=== PATIENT | female | born 1990 | race American Indian/Alaskan Native ===

== ENCOUNTER 2017-03-10 12:10 | Emergency (ER) | payer MEDICAID ==
[2017-03-10 12:23] VITALS: BMI 35.6
[2017-03-10 13:04] LABS: URINE BILIRUBIN NEGATIVE (NEGATIVE); URINE BLOOD NEGATIVE (NEGATIVE); URINE GLUCOSE (UA) NEGATIVE (NEGATIVE); URINE KETONE NEGATIVE (NEGATIVE); URINE LEUKOCYTE ESTERASE LARGE Leu/uL (NEGATIVE); URINE PROTEIN NEGATIVE mg/dL (<30 mg/dL); URINE UROBILINOGEN 0.2 E.U./dL (<1 E.U./dL)
[2017-03-10 13:25] LABS: URINE COLOR YELLOW (YELLOW)
[2017-03-10 13:26] LABS: ADD MANUAL DIFF? NO
--- NOTE | 2017-03-10 13:26 | ED PDOC ---
Arrival/HPI - General Chief Complaint: Female Genitourinary Time Seen by Provider: 03/10/17 12:31 Historian: Patient - History of Present Illness Narrative History of Present Illness (Text): 03/10/17 13:24 A 26 year old ( P:3) female presents to the emergency room with complaints of on and off vaginal spotting for the last 4 days. Patient is currently and notes that her LKMP was 12/31/16. Patient denies any weakness, headaches, dizziness, any urinary complaints, or any other complaints. PMD: Dr. Jones Time/Duration: < week (4 days) Symptom Onset: Sudden Symptom Course: Unchanged Activities at Onset: Light Context: Home Past Medical History - Provider Review Nursing Documentation Reviewed: Yes - Endocrine/Metabolic Hx Diabetes Mellitus Type 2: Yes (Gestational Diabetes) - Psychiatric Hx Substance Use: No Family/Social History - Physician Review Nursing Documentation Reviewed: Yes Family/Social History: No Known Family HX Smoking Status: Unknown If Ever Smoked Hx Alcohol Use: No Hx Substance Use: No Allergies/Home Meds Allergies/Adverse Reactions: Allergies No Known Allergies Allergy (Verified 03/10/17 12:23) Home Medications: Home Meds Medication Instructions Recorded Confirmed No122/Iron/Folic Acid 1 each PO DAILY 03/10/17 03/10/17 [ Multi Tablet] Physical Exam - Physical Exam Narrative Physical Exam (Text): 03/10/17 13:27 - Review of Systems Constitutional: Normal. absent: Fatigue, Weight Change, Fevers Eyes: Normal ENT: Normal Respiratory: Normal absent: SOB, Cough, Sputum Cardiovascular: Normal absent: Chest pain, Palpitations, Syncope Gastrointestinal: Normal absent: Abdominal pain, Diarrhea, Nausea, Vomiting Genitourinary: Vaginal spotting absent: Dysuria, Frequency, Hematuria Musculoskeletal: Normal. absent: Arthralgias, Back Pain, Neck Pain Skin: Normal Neurological: Normal absent: Focal Weakness Endocrine: Normal Hemo/Lymphatic: Normal Psychiatric: Normal - Physical exam Patient appears age appropriate, speaking full sentences without difficulty - Systems Exam Head: Present: Atraumatic, Normocephalic Pupils: Present: PERRL Extraocular Muscles: Present: EOMI Conjunctiva: Present: Normal Mouth: Present: Moist Mucous Membranes Neck: Present: Normal Range of Motion. No: MIDLINE TENDERNESS, Paraspinal Tenderness Respiratory/Chest: Present: Clear to Auscultation, Good Air Exchange. No: Respiratory Distress, Accessory Muscle Use, Tachypneic Cardiovascular: Present: Regular Rate and Rhythm, Normal S1, S2, Peripheral Pulses Present. No: Murmurs Abdomen: Present: Normal Bowel Sounds, No: Tenderness, Peritoneal Signs, Rebound, Guarding, Distention Back: Present: Normal Inspection. No: Midline Tenderness, Paraspinal Tenderness Genitourinary: Scant clear discharge in the vaginal vault. Closed cervix. 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 Upper Extremity: Present: Normal Inspection. No: Cyanosis, Edema Lower Extremity: Present: Normal Inspection. No: Edema Neurological: Present: GCS=15, Speech Normal, cranial nerves II through XII fully intact with no cerebellar abnormality, neuro-sensory fully intact. No focal neurological deficits. Skin: Present: Warm, Dry, Normal Color. No: Rashes Lymphatic: Present: OX3, NI, NC Psychiatric: Present: Alert, Oriented x 3, Normal Insight, Normal Concentration Vital Signs Reviewed: Yes Vital Signs Temp Pulse Resp BP Pulse Ox 03/10/17 15:32 98.2 F 82 18 115/51 L 98 03/10/17 12:10 98.6 F 88 16 124/78 100 Temperature: Afebrile Blood Pressure: Normal Pulse: Regular Respiratory Rate: Normal Appearance: Positive for: Well-Appearing, Non-Toxic, Comfortable Pain Distress: None Mental Status: Positive for: Alert and Oriented X 3 Medical Decision Making ED Course and Treatment: Impression: A 26 year old ( P:3) female with vaginal spotting. On exam, patient abdomen is soft nontender. On speculum exam, patient's cervix is closed , no blood in the vaginal vault. Differential Diagnosis included but are not limited to: Threatened Plan: -- Transvaginal Ultrasound -- Labs/Urinalysis -- Reassess and disposition Progress Notes: Patient states that she is taking vitamins already. Patient states that she will be able to follow up with [facility] and will follow up for STD testing on Monday with medical records. 03/10/17 15:49 Rehabilitation Psychologist : Shadia Le MD Indication: , bleeding Comparison: None available Technique: Ob transvaginal ultrasound Findings: The uterus measures approximately 13.2 x 7.0 x 7.9 cm. Anteverted. There is a single intrauterine fetus present. 5 mm yolk sac. The gestational sac measures 3.8 cm and is compatible with a gestational age of 9 weeks 0 days. The crown-rump length measures 2.8 cm and is compatible with a gestational age of 9 weeks 4 days There is heart motion which measured 161.1 BPM. The right ovary measures 2.5 x 2.5 x 3.1 cm. Blood flow is demonstrated to the right ovary. 1.3 x 0.9 x 1.0 cm right ovarian follicle/cyst. The left ovary is not visualized. Impression: Live single intrauterine with estimated gestational age 9 weeks 2 days. heart rate 161.1 bpm. Advise an anomaly screen at 16-18 weeks gestational age Pt states she understands to return to the ER right away for new or worsening symptoms or for inability to f/u with PMD or specialist as instructed. Patient states that she fully agrees with and understands discharge instructions. States that she agrees with the plan and disposition. Verbalized and repeated discharge instructions and plan. I have given the patient opportunity to ask any additional questions. . - Lab Interpretations Lab Results: 03/10/17 13:16 03/10/17 13:16 Lab Results 03/10/17 14:50: Blood Type A POSITIVE, Antibody Screen Negative, BBK History Checked No verified bt 03/10/17 13:16: PT 9.7 L, INR 0.90 L, APTT 25.4 03/10/17 13:16: WBC 8.2, RBC 4.24, Hgb 12.2, Hct 36.3, MCV 85.6, MCH 28.8, MCHC 33.6, RDW 13.8, Plt Count 220, MPV 10.1, Gran % 67.3, Lymph % (Auto) 26.6, [place] % (Auto) 4.3, Eos % (Auto) 1.6, Baso % (Auto) 0.2, Gran # 5.54, Lymph # 2.2, [place] # 0.4, Eos # 0.1, Baso # 0.02 03/10/17 13:16: Beta HCG, Quant 91904.00 H 03/10/17 13:16: Sodium 137, Potassium 3.8, Chloride 102, Carbon Dioxide 25, Anion Gap 14, BUN 10, Creatinine 0.6, Est GFR ( Amer) > 60, Est GFR (Non- Af Amer) > 60, Random Glucose 100, Calcium 9.5, Total Bilirubin 0.4, AST 21, ALT 26, Alkaline Phosphatase 58, Total Protein 7.3, Albumin 3.9, Globulin 3.4, Albumin/Globulin Ratio 1.1 03/10/17 12:45: Urine Color Yellow, Urine Appearance Sl cloudy, Urine pH 6.0, Ur Specific [place] 1.025, Urine Protein Negative, Urine Glucose (UA) Negative, Urine Ketones Negative, Urine Blood Negative, Urine Nitrate Negative, Urine Bilirubin Negative, Urine Urobilinogen 0.2, Ur Leukocyte Esterase Large H, Urine RBC Negative, Urine WBC 10 - 15, Ur Epithelial Cells 4 - 5, Urine Bacteria Mod, Urine HCG, Qual Positive I have reviewed the lab results: Yes - RAD Interpretation Radiology Orders: 03/10/17 12:33 OB TRANSVAGINAL [US] Stat - Scribe Statement The provider has reviewed the documentation as recorded by the Christelle Carty Provider Scribe Attestation: All medical record entries made by the Scribe were at my direction and personally dictated by me. I have reviewed the chart and agree that the record accurately reflects my personal performance of the history, physical exam, medical decision making, and the department course for this patient. I have also personally directed, reviewed, and agree with the discharge instructions and disposition. Disposition/Present on Arrival - Present on Arrival Any Indicators Present on Arrival: No History of DVT/PE: No History of Uncontrolled Diabetes: No Urinary Catheter: No History of Decub. Ulcer: No History Surgical Site Infection Following: None - Disposition Have Diagnosis and Disposition been Completed?: Yes Diagnosis: Vaginal bleeding Disposition: HOME/ ROUTINE Disposition Time: 15:44 Patient Plan: Discharge Condition: GOOD Discharge Instructions (ExitCare): Threatened Miscarriage (ED), First Trimester Vaginal Bleed (ED) Additional Instructions: Please take vitamins Please follow-up in medical records for your test results Follow-up with a pastoral assistant in the next 1-2 days Return to the ER right away and are unable to follow-up as instructed or for new or worsening symptoms Prescriptions: Nitrofurantoin Macrocrystals [Macrobid] 100 mg PO BID #14 cap Referrals: Becky Jones MD [Primary Care Provider] - Follow up with primary Dhaval Luque DO [Staff Provider] - Follow up with primary Forms: WORK NOTE
[2017-03-10 13:28] LABS: URINE APPEARANCE SL CLOUDY (CLEAR)
[2017-03-10 13:29] LABS: URINE BACTERIA MOD (NEG); URINE RBC NEGATIVE /hpf (0-2)
[2017-03-10 13:32] LABS: BASO # 0.02 K/mm3 (0.0-2.0); BASO % 0.2 % (0.0-3.0); EOS # 0.1 (0.0-0.7); EOS % 1.6 % (1.5-5.0); GRAN # 5.54 (1.4-6.5); GRAN % 67.3 % (50.0-68.0); HEMATOCRIT 36.3 % (36.0-48.0); LYMPH # 2.2 (1.2-3.4); LYMPH % 26.6 % (22.0-35.0); MEAN CELL VOLUME 85.6 fL (80.0-105.0); MEAN CORPUSCULAR HEMOGLOBIN 28.8 pg (25.0-35.0); MEAN CORPUSCULAR HGB CONC 33.6 g/dl (31.0-37.0); MEAN PLATELET VOLUME 10.1 fl (7.0-11.0); MONO # 0.4 (0.1-0.6); MONO % 4.3 % (1.0-6.0); PLATELET COUNT 220 10^3/uL (120.0-450.0); RED CELL DISTRIBUTION WIDTH 13.8 % (11.5-14.5); WHITE BLOOD COUNT 8.2 10^3/ul (4.5-11.0)
[2017-03-10 13:43] LABS: ALB/GLOB RATIO 1.1 (1.1-1.8); ALKALINE PHOSPHATASE 58 U/L (38-133); ALT/SGPT 26 U/L (7-56); AST/SGOT 21 U/L (15-39); BILIRUBIN,TOTAL 0.4 mg/dL (0.2-1.3); BLOOD UREA NITROGEN 10 mg/dL (7-21); CALCIUM 9.5 mg/dL (8.4-10.5); CARBON DIOXIDE 25 mmol/L (21-33); CHLORIDE 102 mmol/L (98-107); GFR AFRICAN-AMERICAN > 60; GLUCOSE,RANDOM 100 mg/dL (70-110); POTASSIUM 3.8 mmol/L (3.6-5.0); SODIUM 137 mmol/L (132-148); TOTAL PROTEIN 7.3 g/dL (5.8-8.3)
[2017-03-10 13:48] LABS: INR 0.9 (0.93-1.08); PARTIAL THROMBOPLASTIN TIME 25.4 Seconds (23.7-30.8)
--- NOTE | 2017-03-10 15:04 | US ---
Indication: , bleeding Comparison: None available Technique: Ob transvaginal ultrasound Findings: The uterus measures approximately 13.2 x 7.0 x 7.9 cm. Anteverted. There is a single intrauterine fetus present. 5 mm yolk sac. The gestational sac measures 3.8 cm and is compatible with a gestational age of 9 weeks 0 days. The crown-rump length measures 2.8 cm and is compatible with a gestational age of 9 weeks 4 days There is heart motion which measured 161.1 BPM. The right ovary measures 2.5 x 2.5 x 3.1 cm. Blood flow is demonstrated to the right ovary. 1.3 x 0.9 x 1.0 cm right ovarian follicle/cyst. The left ovary is not visualized. Impression: Live single intrauterine with estimated gestational age 9 weeks 2 days. heart rate 161.1 bpm. Advise an anomaly screen at 16-18 weeks gestational age
[2017-03-10 15:33] VITALS: BP 115/51; PULSE 82; RESP 18; TEMP 98.2; O2SAT 98
== END 2017-03-10 16:36 | disposition home or self-care (01) ==
LOC: ED 12:10 → MERGE 12:10 → ED 16:36
DX: O20.9 Hemorrhage in early pregnancy, unspecified (principal); Z3A.09 9 weeks gestation of pregnancy